=== PATIENT | male | born 1970 | race Caucasian/White ===

== ENCOUNTER 2021-07-29 19:16 | Emergency (ER) | payer OTHER, SELFPAY ==
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
[2021-07-29 19:23] VITALS: BP 151/89; PULSE 88; RESP 16; TEMP 36.1; O2SAT 99
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
== END 2021-07-29 19:53 | disposition home or self-care (01) ==
PROVIDERS: Emergency Provider Nurse Practitioner
DX: S50.02XA Contusion of left elbow, initial encounter (principal); S80.02XA Contusion of left knee, initial encounter; V28.4XXA Motorcycle driver injured in noncollision transport accident in traffic accident, initial encounter; S50.312A Abrasion of left elbow, initial encounter; S63.502A Unspecified sprain of left wrist, initial encounter; S43.402A Unspecified sprain of left shoulder joint, initial encounter
CPT/HCPCS: 73110; 99213; G0463